=== PATIENT | male | born 1995 ===

== ENCOUNTER 2024-04-22 14:22 | Emergency (ER) | payer OTHER ==
[~2024-04-22] VITALS: Ht 177.8 cm; Wt 78.0 kg
[2024-04-22 14:39] VITALS: BP 140/95
[2024-04-22 15:01] LABS: Hematocrit 44.6 % (37.0-53.0); Hemoglobin 15.9 g/dL (13.5-17.5); Mean Corpuscular HGB Conc 35.7 g/dL (31.5-36.5); Mean Corpuscular Volume 84 fL (80-100); Mean Platelet Volume 9.6 fL (9.1-12.4); Platelet Count 249 K/mm3 (150-400); RDW Coefficient Variation 11.1 % (11.7-14.2); White Blood Cell Count 10.95 K/mm3 (4.00-11.30)
[2024-04-22 15:23] LABS: Albumin, Blood 4.4 g/dL (3.4-5.0); Albumin/Globulin Ratio 1.2 (0.8-1.8); Bilirubin, Total 0.6 mg/dL (0.1-1.0); Bun/Creatinine Ratio 25.4 (12.0-20.0); Calcium, Blood 9.4 mg/dL (8.5-10.1); Creatinine, Blood 0.87 mg/dL (0.60-1.20); Globulin, Blood 3.8 g/dL (2.2-4.0); Potassium, Blood 3.7 mmol/L (3.5-5.5); Total Protein, Blood 8.2 g/dL (6.4-8.2)
[2024-04-22 15:25] LABS: BASOPHILS ABSOLUTE MAN 0.21 K/mm3 (0.00-0.23); BASOPHILS PERCENT MAN 2 % (0-2); EOSINOPHILS ABSOLUTE MAN 0.21 K/mm3 (0.00-0.68); EOSINOPHILS PERCENT MAN 2 % (0-6); LYMPHOCYTES % ATYPICAL MANUAL 2 % (0-0); LYMPHOCYTES ABSOLUTE MAN 6.02 K/mm3 (0.84-5.20); LYMPHOCYTES PERCENT MAN 53 % (21-46); MONOCYTES ABSOLUTE MAN 0.43 K/mm3 (0.16-1.47); MONOCYTES PERCENT MAN 4 % (4-13); NEUTROPHILS ABSOLUTE MAN 4.05 K/mm3 (1.96-9.15); SEG NEUTROPHILS PERCENT MAN 37 % (41-73); TOTAL CELLS COUNTED 100
== END 2024-04-22 17:30 | disposition home or self-care (01) ==
LOC: ER 14:22
PROVIDERS: Emergency Medicine
DX: M79.604 Pain in right leg (principal); R07.9 Chest pain, unspecified
CPT/HCPCS: 71046; 80053; 85025; 85379; 93005; 93010; 99285-25